=== PATIENT | female | born 1965 | race Caucasian/White ===

== ENCOUNTER 2016-11-08 20:33 | Emergency (ER) | payer MEDICAID ==
[2016-11-08 21:06] LABS: URINE APPEARANCE CLEAR; URINE BILIRUBIN SMALL (NEGATIVE); URINE BLOOD NEGATIVE (NEGATIVE); URINE COLOR YELLOW; URINE GLUCOSE (UA) NEGATIVE (NEGATIVE); URINE KETONE TRACE (NEGATIVE); URINE LEUKOCYTE ESTERASE NEGATIVE (NEGATIVE); URINE NITRITE NEGATIVE (NEGATIVE); URINE PROTEIN TRACE (NEGATIVE); URINE UROBILINOGEN 0.2 E.U./dL (0.20 - 1.00)
[2016-11-08 21:15] LABS: BASO % 0.2 % (0-6); GRAN % 69.9 % (47-80); HEMATOCRIT 42.9 % (35.0-47.0); HEMOGLOBIN 13.8 gm/dl (11.6-16.0); MEAN CELL VOLUME 91.1 fl (81-97); MEAN CORPUSCULAR HEMOGLOBIN 29.3 pg (27-33); MEAN CORPUSCULAR HGB CONC 32.2 g/dl (32-36); MEAN PLATELET VOLUME 9.8 fl (7.4-10.4); MONO % 8.9 % (0-9); PLATELET COUNT 193 K/uL (130-400); RED BLOOD COUNT 4.71 M/uL (3.80-5.40); WHITE BLOOD COUNT W/O DIFF 4.1 K/uL (4.2-12.2)
[2016-11-08 21:25] LABS: ALB/GLOB RATIO 1.4 (1.1-1.8); ALBUMIN 4.7 gm/dL (3.5-5.0); ALKALINE PHOSPHATASE 85 U/L (38-126); ALT/SGPT 48 U/L (9-52); ANION GAP 7.8 (7-16); AST/SGOT 40 U/L (14-36); BILIRUBIN,TOTAL 0.46 mg/dL (0.2-1.3); BLOOD UREA NITROGEN 21 mg/dL (7-17); CARBON DIOXIDE 27.2 mmol/L (22-30); CREATININE 0.9 mg/dL (0.52-1.04); EST GLOMERULAR FILTRATION RATE > 60 ml/min; GLUCOSE,RANDOM 102 mg/dL (70-110); TOTAL PROTEIN 8.1 gm/dL (6.3-8.2)
--- NOTE | 2016-11-08 21:31 | Emergency Department Record ---
History of Present Illness - General Chief Complaint: Abdominal Pain Stated Complaint: BACK AND ABD PAIN Time Seen by Provider: 11/08/16 20:52 Source: Patient Mode of Arrival: Ambulatory Limitations: No limitations - History of Present Illness Initial Comments: pt has a hx of uterine ca a few years ago for which she had treatment.. hyst, chemo. now pt she has pain in her abdomen which is getting worse. she states it gets worse wih a full bladder or bowels. pain is diffuse. no n/v/c/d MD Complaint: Abdominal pain Onset/Timin -: Hour(s) Location: Suprapubic Radiation: Back Quality: Fullness, Sharp Consistency: Constant Improves With: Nothing Worsens With: Bowel movement Associated Symptoms: Denies other symptoms - Related Data Patient : No Home Medications Medication Instructions Recorded Confirmed Last Taken Multivitamin [Multi-Vitamin Daily] 1 each PO DAILY tab 07/19/15 11/08/16 Unknown Previous Rx's Medication Instructions Recorded Amoxicillin/Potassium Clav 1 each PO BID #20 tablet 11/08/16 [Augmentin 875Mg/125Mg] Docusate Sodium [Colace] 100 mg PO QHS #20 cap 11/08/16 Hydrocodone/Acetaminophen [[place] 1 tab PO Q6H PRN #14 tab 11/08/16 5mg/325mg] Allergies Allergy/AdvReac Type Severity Reaction Status Date / Time Tetracyclines Allergy Intermediate SWELLING Verified 11/08/16 20:40 (GENERAL) adhesive Allergy Mild RASH Verified 11/08/16 20:40 Travel Screening - Travel/Exposure Within Last 30 Days Have you traveled within the last 30 days?: No - Travel Symptoms Symptom Screening: None Review of Systems Reviewed: No additional complaints except as noted below Constitutional: Reports: As per HPI. Denies: Chills, Fever, Malaise, Night sweats, Weakness, Weight change Eyes: Reports: As per HPI. Denies: Eye discharge, Eye pain, Photophobia, Vision change ENT: Reports: As per HPI. Denies: Congestion, Dental pain, Ear pain, Epistaxis , Hearing loss, Throat pain Respiratory: Reports: As per HPI. Denies: Cough, Dyspnea, Hemoptysis, Stridor, Wheezes Cardiovascular: Reports: As per HPI. Denies: Arrhythmia, Chest pain, Dyspnea on exertion, Edema, Murmurs, Orthopnea, Palpitations, Paroxysmal nocturnal dyspnea, Rheumatic Fever, Syncope Endocrine: Reports: As per HPI. Denies: Fatigue, Heat or cold intolerance, Polydipsia, Polyuria Gastrointestinal: Reports: As per HPI. Denies: Abdominal pain, Constipation, Diarrhea, Hematemesis, Hematochezia, Melena, Nausea, Vomiting Genitourinary: Reports: As per HPI. Denies: Abnormal menses, Discharge, Dyspareunia, Dysuria, Frequency, Hematuria, Incontinence, Retention, Urgency Musculoskeletal: Reports: As per HPI. Denies: Arthralgia, Back pain, Gout, Joint swelling, Myalgia, Neck pain Skin: Reports: As per HPI. Denies: Bruising, Change in color, Change in hair/ nails, Lesions, Pruritus, Rash Neurological: Reports: As per HPI. Denies: Abnormal gait, Confusion, Headache, Numbness, Paresthesias, Seizure, Tingling, Tremors, Vertigo, Weakness Psychiatric: Reports: As per HPI. Denies: Anxiety, Auditory hallucinations, Depression, Homicidal thoughts, Suicidal thoughts, Visual hallucinations Hematological/Lymphatic: Reports: As per HPI. Denies: Anemia, Blood Clots, Easy bleeding, Easy bruising, Swollen glands Past Medical History - SOCIAL HISTORY Smoking Status: Former smoker - RESPIRATORY Hx Respiratory Disorders: No - CARDIOVASCULAR Hx Cardio Disorders: Yes Hx Palpitations: Yes - NEURO Hx Neuro Disorders: Yes Hx Dizziness: Yes Comment:: VERTIGO - GI Hx GI Disorders: Yes Hx Diverticulitis: Yes - Hx Genitourinary Disorders: No - ENDOCRINE Hx Endocrine Disorders: No - MUSCULOSKELETAL Hx Musculoskeletal Disorders: No - PSYCH Hx Psych Problems: Yes Hx Anxiety: Yes - HEMATOLOGY/ONCOLOGY Hx Hematology/Oncology Disorders: Yes Hx Cancer: Yes (Uterine CA) Hx Chemotherapy: Yes Hx Blood Transfusions: Yes Hx Blood Transfusion Reaction: No Family Medical History Any Significant Family History?: Yes Hx Cancer: Grandparents Hx Diabetes: Father Physical Exam - General General Appearance: Alert, Oriented x3, Cooperative, Mild distress - Head Head exam: Normal inspection - Eye Eye exam: Normal appearance, PERRL, EOMI Pupils: Normal accommodation - ENT ENT exam: Normal exam, Mucous membranes moist, Normal external ear exam, Normal orophraynx Ear exam: Normal external inspection. negative: External canal tenderness Nasal Exam: Normal inspection. negative: Discharge, Sinus tenderness Mouth exam: Normal external inspection, Tongue normal Teeth exam: Normal inspection. negative: Dental caries Throat exam: Normal inspection. negative: Tonsillar erythema, Tonsillar exudate - Neck Neck exam: Normal inspection, Full ROM. negative: Tenderness - Respiratory Respiratory exam: Normal lung sounds bilaterally. negative: Respiratory distress - Cardiovascular Cardiovascular Exam: Regular rate, Normal rhythm, Normal heart sounds - GI/Abdominal GI/Abdominal exam: Soft, Normal bowel sounds, Tenderness - Rectal Rectal exam: Deferred - exam: Normal external exam, Other (prolapse of bladder with bearing down) - Extremities Extremities exam: Normal inspection, Full ROM, Normal capillary refill. negative: Tenderness - Back Back exam: Reports: Normal inspection, Full ROM. Denies: Muscle spasm, Rash noted, Tenderness - Neurological Neurological exam: Alert, CN II-XII intact, Normal gait, Oriented X3, Reflexes normal - Psychiatric Psychiatric exam: Normal affect, Normal mood - Skin Skin exam: Dry, Intact, Normal color, Warm Course Vital Signs 11/08/16 20:41 Temperature 98.1 F Pulse Rate 76 Respiratory 18 Rate Blood Pressure 139/85 Pulse Ox 96 - Reevaluation(s) Reevaluation #1: 11/08/16 22:25 cystic like structure ant to distal inferior vena cava d/w pt and need for f/u and pet scan. she says that this has been being followed. Medical Decision Making - Management Options MDM Management: Additional Work-up Planned (e.g. ADM/Transfer/OP Study) - Data Complexity MDM Data: Labs Ordered and/or Reviewed, X-Ray Ordered and/or Reviewed - Lab Data Result diagrams: 11/08/16 21:09 11/08/16 21:09 Lab Results 11/08/16 11/08/16 Range/Units 21:06 21:09 WBC 4.1 L (4.2-12.2) K/uL RBC 4.71 (3.80-5.40) M/uL Hgb 13.8 (11.6-16.0) gm/dl Hct 42.9 (35.0-47.0) % MCV 91.1 (81-97) fl MCH 29.3 (27-33) pg MCHC 32.2 (32-36) g/dl RDW 14.0 (11.5-14.5) % Plt Count 193 (130-400) K/uL MPV 9.8 (7.4-10.4) fl Gran % 69.9 (47-80) % Lymphocytes % 19.0 (16-45) % Monocytes % 8.9 (0-9) % Eosinophils % 2.0 (0-6) % Basophils % 0.2 (0-6) % Urine Color Yellow Urine Appearance Clear Urine pH 5.5 (5.0-8.0) Ur Specific [place] 1.025 (1.002-1.030) Urine Protein Trace H (NEGATIVE) Urine Glucose (UA) Negative (NEGATIVE) Urine Ketones Trace H (NEGATIVE) Urine Blood Negative (NEGATIVE) Urine Nitrite Negative (NEGATIVE) Urine Bilirubin Small H (NEGATIVE) Urine Urobilinogen 0.2 (0.20 - 1.00) E.U./dL Ur Leukocyte Esterase Negative (NEGATIVE) - Radiology Data Radiology results: Report reviewed, Image reviewed Disposition Disposition: Discharge Clinical Impression: Hypokalemia Diverticulitis Qualifiers: Diverticulitis site: large intestine Diverticulitis bleeding: without bleeding Diverticulitis complication: without perforation or abscess Qualified Code(s): K57.32 - Diverticulitis of large intestine without perforation or abscess without bleeding Cystocele Qualifiers: Cystocele location: midline Qualified Code(s): N81.11 - Cystocele, midline Disposition: Home, Self-Care Condition: (1) Good Instructions: Diverticulitis (ED), Cystocele (ED) Additional Instructions: follow up with diesel locomotive firer/fireman, family doctor and oncologist. have further evaluation of cystic mass including pet scan as deemed appropriate by oncologist. return sooner if worse Prescriptions: Docusate Sodium [Colace] 100 mg PO QHS #20 cap Amoxicillin/Potassium Clav [Augmentin 875Mg/125Mg] 1 each PO BID #20 tablet Hydrocodone/Acetaminophen [[place] 5mg/325mg] 1 tab PO Q6H PRN #14 tab PRN Reason: Pain - General Forms: Patient Portal Access
[2016-11-08] MEDS ORDERED: POTASSIUM CHLORIDE 20 MEQ TABLET PO ONE (21:53)
[2016-11-08] MEDS ORDERED: AMOXICILLIN/POTASSIUM CLAV 875MG/125MG TABLET PO ONE (22:27)
[2016-11-08] MEDS ORDERED: ONDANSETRON HCL IV 4 MG/2 ML VIAL IVP ONE (22:31)
[2016-11-08] MEDS ORDERED: HYDROMORPHONE HCL 1 MG/ML CPJ IVP ONE (22:31)
[2016-11-08] MEDS ORDERED: HYDROCODONE/APAP 5/325MG TABLET PO ONE (22:35)
--- NOTE | 2016-11-09 08:07 | CT SCAN REPORT ---
EXAM: CT SCAN OF THE ABDOMEN AND PELVIS WITHOUT CONTRAST HISTORY: PATIENT HAS FULLNESS OF THE BLADDER AND PRESSURE WITHIN THE BACK WITH PAIN. TECHNIQUE: Serial axial CT scan of the abdomen and pelvis was performed at 3.75 mm intervals from the dome of the diaphragm down to the pubic symphysis without the use of intravenous or oral contrast. Comparison: CT scan of the abdomen and pelvis dated 02/08/16 is provided. FINDINGS: The lung windows of the lung bases demonstrate no CT evidence of a focal infiltrate or pleural effusion. The visualized heart size and contour is within normal limits. The liver demonstrates diffuse fatty infiltration. No suspicious hepatic lesions are identified. The size and contour of the liver is within normal limits. The spleen, pancreas, and bilateral adrenal glands are unremarkable. Cholecystectomy clips are noted within the right upper quadrant of the abdomen. There is no CT evidence of hydronephrosis or hydroureter. No renal or ureteral calculi are noted. The contour and caliber of the abdominal aorta is within normal limits. There is no CT evidence of retroperitoneal, pelvic or inguinal lymphadenopathy. There is a nonspecific 2.6 cm space anterior to the inferior vena cava. This lesion is slightly larger than on the prior examination. Differential considerations include lymphocele versus seroma, however, given the patient's history of endometrial and/or ovarian cancer, neoplastic etiology cannot be entirely excluded. PET scan can be obtained for further evaluation. The bowel gas pattern is nonobstructive. Numerous colonic diverticula are identified. There is questionable pericolonic fat stranding at the junction of the descending and sigmoid colon which may represent subtle diverticulitis. Clinical correlation is recommended. There is no CT evidence of free intraperitoneal fluid or free intraperitoneal air. The urinary bladder is decompressed. The uterus is absent. Bone windows demonstrate no CT evidence of a fracture or dislocation of the visualized osseous structures of the abdomen and pelvis. IMPRESSION: 1. QUESTIONABLE SUBTLE DIVERTICULITIS IDENTIFIED AT THE JUNCTION OF THE DESCENDING AND SIGMOID COLON. CLINICAL CORRELATION IS RECOMMENDED. 2. DIFFUSE HEPATIC STEATOSIS. 3. CYSTIC STRUCTURE IDENTIFIED ANTERIOR TO THE DISTAL INFERIOR VENA CAVA. THIS FINDING APPEARS SLIGHTLY LARGER THAN ON THE PRIOR EXAMINATION. NOTED PREVIOUSLY, DIFFERENTIAL CONSIDERATIONS INCLUDE SEROMA AND/OR LYMPHOCELE. GIVEN THE PATIENT'S HISTORY OF OVARIAN CANCER, HOWEVER, NEOPLASTIC ETIOLOGY CANNOT BE ENTIRELY EXCLUDED. PET SCAN CAN BE OBTAINED FOR FURTHER EVALUATION. JOB NUMBER: [id number] [facility]
== END 2016-11-08 22:51 | disposition home or self-care (01) ==
LOC: ER 20:33
DX: K57.32 Diverticulitis of large intestine without perforation or abscess without bleeding (principal); N81.11 Cystocele, midline; E87.6 Hypokalemia; Z85.42 Personal history of malignant neoplasm of other parts of uterus
CPT/HCPCS: 74176; 80053; 81003; 85025; 99284

== ENCOUNTER 2018-01-08 13:05 | Emergency (ER) | payer SELFPAY ==
[2018-01-08] MEDS ORDERED: 0.9 % SODIUM CHLORIDE 1,000 ML BAG IV ONE (13:57)
[2018-01-08 14:11] LABS: BASO % 0.4 % (0-6); EOS % 0.8 % (0-6); GRAN % 53.7 % (47-80); HEMATOCRIT 40.9 % (35.0-47.0); HEMOGLOBIN 13.1 gm/dl (11.6-16.0); LYMPH % 34.9 % (16-45); MEAN CELL VOLUME 91.5 fl (81-97); MEAN CORPUSCULAR HEMOGLOBIN 29.3 pg (27-33); MEAN PLATELET VOLUME 9.5 fl (7.4-10.4); MONO % 10.2 % (0-9); PLATELET COUNT 165 K/uL (130-400); RED BLOOD COUNT 4.47 M/uL (3.80-5.40); RED CELL DISTRIBUTION WIDTH 13.7 % (11.5-14.5); WHITE BLOOD COUNT W/O DIFF 2.6 K/uL (4.2-12.2)
--- NOTE | 2018-01-08 14:12 | Emergency Department Record ---
History of Present Illness - General Chief Complaint: Abdominal Pain Stated Complaint: ABDOMINAL PAIN Time Seen by Provider: 01/08/18 13:49 Source: Patient Mode of Arrival: Ambulatory Limitations: No limitations - History of Present Illness Initial Comments: pt is having llq ap. she has a hx of diverticulitis but states this feels different.. she has no n/v. she has both c/d. she has a hx of uterine ca. Complaint: Abdominal pain -: Month(s) Radiation: LLQ Migration to: LLQ Severity: Moderate Severity scale (1-10): 7 Quality: Aching Consistency: Constant Improves With: Nothing Worsens With: Nothing Associated Symptoms: Fever - Related Data Patient : No Home Medications Medication Instructions Recorded Confirmed Last Taken L.acidoph,Paracasei, B.lactis 1 each PO DAILY 01/08/18 01/08/18 1 Day Ago [Probiotic] ~01/07/18 Previous Rx's Medication Instructions Recorded Docusate Sodium [Colace] 100 mg PO QHS #20 cap 11/08/16 Hydrocodone/Acetaminophen [[place] 1 each PO Q6HR #14 tablet 01/08/18 5-325 Tablet] Ondansetron [Zofran Odt] 4 mg PO Q8H #14 tab.rapdis 01/08/18 Allergies Allergy/AdvReac Type Severity Reaction Status Date / Time Tetracyclines Allergy Intermediate SWELLING Verified 01/08/18 13:18 (GENERAL) adhesive Allergy Mild RASH Verified 01/08/18 13:18 Travel Screening - Travel/Exposure Within Last 30 Days Have you traveled within the last 30 days?: No - Travel/Exposure Within Last Year Have you traveled outside the [place] in the last year?: No - Additonal Travel Details Have you been exposed to anyone with a communicable illness?: No - Travel Symptoms Symptom Screening: None Review of Systems Reviewed: No additional complaints except as noted below Constitutional: Reports: As per HPI. Denies: Chills, Fever, Malaise, Night sweats, Weakness, Weight change Eyes: Reports: As per HPI. Denies: Eye discharge, Eye pain, Photophobia, Vision change ENT: Reports: As per HPI. Denies: Congestion, Dental pain, Ear pain, Epistaxis , Hearing loss, Throat pain Respiratory: Reports: As per HPI. Denies: Cough, Dyspnea, Hemoptysis, Stridor, Wheezes Cardiovascular: Reports: As per HPI. Denies: Arrhythmia, Chest pain, Dyspnea on exertion, Edema, Murmurs, Orthopnea, Palpitations, Paroxysmal nocturnal dyspnea, Rheumatic Fever, Syncope Endocrine: Reports: As per HPI. Denies: Fatigue, Heat or cold intolerance, Polydipsia, Polyuria Gastrointestinal: Reports: As per HPI, Abdominal pain. Denies: Constipation, Diarrhea, Hematemesis, Hematochezia, Melena, Nausea, Vomiting Genitourinary: Reports: As per HPI. Denies: Abnormal menses, Discharge, Dyspareunia, Dysuria, Frequency, Hematuria, Incontinence, Retention, Urgency Musculoskeletal: Reports: As per HPI. Denies: Arthralgia, Back pain, Gout, Joint swelling, Myalgia, Neck pain Skin: Reports: As per HPI. Denies: Bruising, Change in color, Change in hair/ nails, Lesions, Pruritus, Rash Neurological: Reports: As per HPI. Denies: Abnormal gait, Confusion, Headache, Numbness, Paresthesias, Seizure, Tingling, Tremors, Vertigo, Weakness Psychiatric: Reports: As per HPI. Denies: Anxiety, Auditory hallucinations, Depression, Homicidal thoughts, Suicidal thoughts, Visual hallucinations Hematological/Lymphatic: Reports: As per HPI. Denies: Anemia, Blood Clots, Easy bleeding, Easy bruising, Swollen glands Past Medical History - SOCIAL HISTORY Smoking Status: Former smoker Alcohol Use: None Drug Use: None - RESPIRATORY Hx Respiratory Disorders: No - CARDIOVASCULAR Hx Cardio Disorders: Yes Hx Palpitations: Yes - NEURO Hx Neuro Disorders: Yes Hx Dizziness: Yes Comment:: VERTIGO - GI Hx GI Disorders: Yes Hx Diverticulitis: Yes - Hx Genitourinary Disorders: No - ENDOCRINE Hx Endocrine Disorders: No - MUSCULOSKELETAL Hx Musculoskeletal Disorders: No - PSYCH Hx Psych Problems: Yes Hx Anxiety: Yes - HEMATOLOGY/ONCOLOGY Hx Hematology/Oncology Disorders: Yes Hx Cancer: Yes (Uterine CA) Hx Chemotherapy: Yes (07/2014) Hx Blood Transfusions: Yes Hx Blood Transfusion Reaction: No Family Medical History Any Significant Family History?: Yes Hx Cancer: Grandparents Hx Diabetes: Father Physical Exam - General General Appearance: Alert, Oriented x3, Cooperative, Mild distress - Head Head exam: Normal inspection - Eye Eye exam: Normal appearance, PERRL, EOMI Pupils: Normal accommodation - ENT ENT exam: Normal exam, Mucous membranes moist, Normal external ear exam, Normal orophraynx, TM's normal bilaterally Ear exam: Normal external inspection. negative: External canal tenderness Nasal Exam: Normal inspection. negative: Discharge, Sinus tenderness Mouth exam: Normal external inspection, Tongue normal Teeth exam: Normal inspection. negative: Dental caries Throat exam: Normal inspection. negative: Tonsillar erythema, Tonsillar exudate - Neck Neck exam: Normal inspection, Full ROM. negative: Tenderness - Respiratory Respiratory exam: Normal lung sounds bilaterally. negative: Respiratory distress - Cardiovascular Cardiovascular Exam: Regular rate, Normal rhythm, Normal heart sounds - GI/Abdominal GI/Abdominal exam: Soft, Normal bowel sounds, Tenderness (l abd) - Rectal Rectal exam: Deferred - exam: Deferred - Extremities Extremities exam: Normal inspection, Full ROM, Normal capillary refill. negative: Tenderness - Back Back exam: Reports: Normal inspection, Full ROM. Denies: Muscle spasm, Rash noted, Tenderness - Neurological Neurological exam: Alert, CN II-XII intact, Normal gait, Oriented X3 - Psychiatric Psychiatric exam: Normal affect, Normal mood - Skin Skin exam: Dry, Intact, Normal color, Warm Course Vital Signs 01/08/18 13:19 Temperature 98.0 F Pulse Rate [ 79 Pulse Ox Probe] Respiratory 18 Rate Blood Pressure 150/88 [Left Arm] Pulse Ox 98 dr - Reevaluation(s) Reevaluation #1: 01/08/18 17:22 d/w dr ayala Reevaluation #2: 01/08/18 17:44 d/w dr gilliam Medical Decision Making - Lab Data Result diagrams: 01/08/18 14:02 01/08/18 14:02 Disposition Disposition: Discharge Clinical Impression: Abdominal wall mass Disposition: Home, Self-Care Condition: (1) Good Instructions: Abdominal Pain (ED), Soft Tissue Mass (ED) Additional Instructions: follow up with dr ayala this week for further evaluation of abdominal. return sooner if worse. Prescriptions: Hydrocodone/Acetaminophen [[place] 5-325 Tablet] 1 each PO Q6HR #14 tablet Ondansetron [Zofran Odt] 4 mg PO Q8H #14 tab.rapdis Referrals: Darrion Gilliam [DOCTOR OF OSTEOPATH] - [facility] Specialty Clinics [Provider Group] Forms: Patient Portal Access Quality - Quality Measures Quality Measures: N/A - Blood Pressure Screening Does Patient Have Any of the Following: No Blood Pressure Classification: Hypertensive Reading Systolic Measurement: 140 Diastolic Measurement: 67 Screening for High Blood Pressure: < First Hypertensive BP, F/U Documented > [ [id number]] First Hypertensive Follow-up Interventions: Follow-up with rescreen GT 1 day and LT 4 weeks.
[2018-01-08 14:15] LABS: URINE APPEARANCE CLEAR; URINE BILIRUBIN NEGATIVE (NEGATIVE); URINE BLOOD NEGATIVE (NEGATIVE); URINE COLOR YELLOW; URINE GLUCOSE (UA) NEGATIVE (NEGATIVE); URINE KETONE NEGATIVE (NEGATIVE); URINE LEUKOCYTE ESTERASE NEGATIVE (NEGATIVE); URINE NITRITE NEGATIVE (NEGATIVE); URINE PROTEIN NEGATIVE (NEGATIVE); URINE UROBILINOGEN 0.2 E.U./dL (0.20 - 1.00)
[2018-01-08 14:29] LABS: BLOOD UREA NITROGEN 11 mg/dL (6-20); CREATININE 0.6 mg/dL (0.5-0.9); EST GLOMERULAR FILTRATION RATE > 60 mL/min
[2018-01-08 14:30] LABS: TOTAL PROTEIN 7.2 g/dL (6.6-8.7)
[2018-01-08 14:32] LABS: GLUCOSE,RANDOM 102 mg/dL (74-109)
[2018-01-08 14:35] LABS: ALB/GLOB RATIO 1.4 (1.1-1.8); ALBUMIN 4.2 g/dL (4.0-5.0); ALKALINE PHOSPHATASE 57 U/L (35-104); ALT/SGPT 26 U/L (<33); AST/SGOT 23 U/L (10.0-35.0); LIPASE 36 U/L (13-60)
[2018-01-08] MEDS ORDERED: ONDANSETRON HCL IV 4 MG/2 ML VIAL IVP ONE (17:20)
[2018-01-08] MEDS ORDERED: HYDROMORPHONE HCL 2 MG/ML VIAL IVP ONE (17:20)
[2018-01-08] MEDS ORDERED: HEPARIN SODIUM FLUSH 100 UNITS/ML SYR 5ML IVP ONE (18:17)
--- NOTE | 2018-01-09 10:23 | CT SCAN REPORT ---
EXAM: CT OF THE ABDOMEN AND PELVIS WITH CONTRAST HISTORY: LEFT LOWER QUADRANT ABDOMINAL PAIN INTERMITTENTLY FOR TWO MONTHS WITH WORSENING THIS WEEK. STAGE 3 UTERINE CARCINOMA DIAGNOSED IN 2013. LAST CHEMOTHERAPY IN 2016. TECHNIQUE: Following oral and intravenous contrast administration, helical CT examination of the abdomen and pelvis was performed including delayed images through the kidneys with 100 ml of Omnipaque 300 utilized. Comparison: CT of the abdomen and pelvis without contrast dated 11/08/16. CT of the chest, abdomen and pelvis with contrast dated 02/08/16. FINDINGS: Minor linear scarring versus atelectasis within the left lung base. This is more pronounced than on the prior examination. The lung bases are otherwise clear. No pleural or pericardial effusion. The heart is not enlarged. There is mild decreased density of the liver relative to the spleen consistent with steatosis. No new focal hepatic lesion. The gallbladder is surgically absent. There is mild prominence of the central biliary tree with the common hepatic duct measuring 11 mm. This is unchanged and likely relates to a physiologic response to surgical absence of the gallbladder. The spleen, pancreas, and adrenal glands remain normal in appearance. A too small to characterize hypodense lesion is demonstrated within the upper pole of the left kidney. This was not visualized with confidence on prior examinations. This measures 5 mm. It is nonspecific, but likely a cyst. No new intraabdominal nor retroperitoneal lymphadenopathy. There is a thin walled cystic structure again noted contiguous with the anterior margin of the IVC bifurcation. This measures approximately 2.4 x 2.5 cm and may cause mild flattening of the anterior margin of the IVC bifurcation. This has not changed in size since 11/08/16, however, suggesting a benign process such as seroma or lymphocele. The portal vein and splenic vein are patent. The central mesenteric vasculature appears patent. The abdominal aorta and iliac arteries are without aneurysmal dilatation. No new pelvic mass, lymphadenopathy, nor free pelvic fluid is demonstrate. The uterus is surgically absent. No intrinsic urinary bladder abnormality is noted. There is diverticulosis of the left colon redemonstrated, this is most pronounced in the sigmoid region. No definite diverticulitis. The appendix is visualized and normal in appearance. No gross mild dilatation nor bowel wall thickening. A small fat filled umbilical hernia persists. There is a solid mass like area in the abdominal wall at the anterolateral mid level just above the level of the umbilicus. This measures 1.6 x 1.9 x 2.7 cm. This area has enlarged in the interval. Neoplasm cannot be excluded. Hematoma is unlikely. No new lytic or blastic bone lesion. There are degenerative changes scattered throughout the visualized spine most pronounced at the lumbosacral junction where they are mild to moderate in degree. IMPRESSION: 1. SURGICAL ABSENCE OF THE UTERUS, OVARIES AND GALLBLADDER. 2. DIVERTICULOSIS OF THE LEFT COLON WITHOUT CONVINCING EVIDENCE OF ACUTE DIVERTICULITIS. 3. SOLID APPEARING MASS IN THE DEEP LAYERS OF THE LEFT ANTERIOR ABDOMINAL WALL AT THE MID LEVEL MEASURING 1.6 X 4.9 X 2.7 CM. THIS IS CENTERED AT THE LEVEL OF THE TRANSVERSUS ABDOMINIS MUSCLE. MALIGNANCY IS TO BE EXCLUDED. [facility]: [id number] [facility]
== END 2018-01-08 18:20 | disposition home or self-care (01) ==
LOC: ER 13:05
DX: R19.09 Other intra-abdominal and pelvic swelling, mass and lump (principal); R10.32 Left lower quadrant pain; F17.210 Nicotine dependence, cigarettes, uncomplicated; Z85.42 Personal history of malignant neoplasm of other parts of uterus
CPT/HCPCS: 74177; 80053; 81003; 83605; 83690; 85025; 96374; 96375; 99284; J2405; J7030

== ENCOUNTER 2018-06-01 05:09 | Emergency (ER) | payer SELFPAY ==
--- NOTE | 2018-06-01 05:36 | Emergency Department Record ---
History of Present Illness - General Chief complaint: Pain Stated complaint: PAIN Time Seen by Provider: 06/01/18 05:18 Source: Patient Mode of Arrival: Ambulatory Limitations: No limitations - History of Present Illness Initial comments: 53 yo female presents to ED for evaluation of lower abdominal pain symptoms x 1 month. Patient reports that her pain is diffuse, reports that she is scheduled for surgery 06/10 for an abdominal tumor to be removed by Dr. Salazar. Patient also reports that she was recently switched from [place] to Morphine IR that she states "is not working" 05/02. Patient reports that she has not taken her Morphine IR since yesterday as her medication is not working. Patient reports decreased appetite as well, denies change in stools. Patient denies fevers, chills, vomiting, or recent illness. Patient has not contacted her pain specialist or her oncologic surgeon regarding her symptoms. MD Complaint: Abdominal Pain Onset/Timin -: Month(s) Location: Other History of Same: Yes Severity scale (1-10): 10 Consistency: Constant Improves with: Nothing Worsens with: Nothing Associated Symptoms: Denies other symptoms - Related Data Home Medications Medication Instructions Recorded Confirmed Last Taken Morphine Sulfate 15 mg PO Q4HR PRN 06/01/18 06/01/18 05/31/18 30 mg Previous Rx's Medication Instructions Recorded Docusate Sodium [Colace] 100 mg PO QHS #20 cap 11/08/16 Ondansetron [Zofran Odt] 4 mg PO Q8H #14 tab.rapdis 01/08/18 Allergies Allergy/AdvReac Type Severity Reaction Status Date / Time Tetracyclines Allergy Intermediate SWELLING Verified 01/08/18 13:18 (GENERAL) adhesive Allergy Mild RASH Verified 01/08/18 13:18 Travel Screening - Travel/Exposure Within Last 30 Days Have you traveled within the last 30 days?: No - Travel/Exposure Within Last Year Have you traveled outside the [place] in the last year?: No - Additonal Travel Details Have you been exposed to anyone with a communicable illness?: No - Travel Symptoms Symptom Screening: None Review of Systems Constitutional: Denies: Chills, Fever, Malaise, Night sweats Eyes: Denies: Eye discharge, Eye pain ENT: Denies: Congestion, Ear pain, Epistaxis Respiratory: Denies: Cough, Dyspnea Cardiovascular: Denies: Chest pain, Dyspnea on exertion Endocrine: Denies: Fatigue, Heat or cold intolerance Gastrointestinal: Reports: Abdominal pain. Denies: Nausea, Vomiting Genitourinary: Denies: Incontinence, Retention Musculoskeletal: Denies: Arthralgia, Back pain Skin: Denies: Bruising, Change in color Neurological: Denies: Abnormal gait, Confusion, Headache, Seizure Psychiatric: Denies: Anxiety Hematological/Lymphatic: Denies: Anemia, Blood Clots Past Medical History - SOCIAL HISTORY Smoking Status: Former smoker Alcohol Use: None Drug Use: None - RESPIRATORY Hx Respiratory Disorders: No - CARDIOVASCULAR Hx Cardio Disorders: Yes Hx Palpitations: Yes - NEURO Hx Neuro Disorders: Yes Hx Dizziness: Yes Comment:: VERTIGO - GI Hx GI Disorders: Yes Hx Diverticulitis: Yes - Hx Genitourinary Disorders: Yes - ENDOCRINE Hx Endocrine Disorders: No - MUSCULOSKELETAL Hx Musculoskeletal Disorders: No - PSYCH Hx Psych Problems: Yes Hx Anxiety: Yes - HEMATOLOGY/ONCOLOGY Hx Hematology/Oncology Disorders: Yes Hx Cancer: Yes (Uterine CA) Hx Chemotherapy: Yes (07/2014) Hx Radiation Therapy: Yes (2014) Hx Blood Transfusions: Yes Hx Blood Transfusion Reaction: No Family Medical History Any Significant Family History?: No Hx Cancer: Grandparents Hx Diabetes: Father Physical Exam - General General Appearance: Alert, Oriented x3, Cooperative, Mild distress, Other ( tearful on examination, appears anxious) Limitations: No limitations - Head Head exam: Atraumatic, Normocephalic, Normal inspection Head exam detail: negative: Abrasion, Contusion, Garcia's sign, General tenderness, Hematoma, Laceration - Eye Eye exam: Normal appearance. negative: Conjunctival injection, Periorbital swelling, Periorbital tenderness, Scleral icterus - ENT Ear exam: negative: Auricular hematoma, Auricular trauma Nasal Exam: negative: Active bleeding, Discharge, Dried blood, Foreign body Mouth exam: negative: Drooling, Laceration, Muffled voice, Tongue elevation - Neck Neck exam: Normal inspection. negative: Meningismus, Tenderness - Respiratory Respiratory exam: Normal lung sounds bilaterally. negative: Rales, Respiratory distress, Rhonchi, Stridor - Cardiovascular Cardiovascular Exam: Regular rate, Normal rhythm, Normal heart sounds - GI/Abdominal GI/Abdominal exam: Soft, Tenderness (Diffuse TTP on examination, no rebound, no guarding). negative: Rebound, Rigid - Rectal Rectal exam: Deferred - exam: Deferred - Extremities Extremities exam: Normal inspection. negative: Calf tenderness, Pedal edema, Tenderness - Back Back exam: Denies: CVA tenderness (R), CVA tenderness (L) - Neurological Neurological exam: Alert, Normal gait, Oriented X3 - Psychiatric Psychiatric exam: Anxious - Skin Skin exam: Normal color. negative: Abrasion Type of lesion: negative: abrasion Course Vital Signs 06/01/18 05:19 Temperature 98.4 F Pulse Rate 76 Respiratory 20 Rate Blood Pressure 148/85 Pulse Ox 98 - Reevaluation(s) Reevaluation #1: 06/01/18 05:38 Following examination with nursing staff present, I began to ask "based on the duration of your abdominal pain symptoms, we can perform an extensive evaluation.." Patient abruptly cut me off stating "Nevermind, I want to leave" . Nurse present and I left the room for the patient to change her clothing, patient then left the department without further evaluation. Disposition Disposition: Other (eloped) Clinical Impression: Abdominal pain Qualifiers: Abdominal location: generalized Qualified Code(s): R10.84 - Generalized abdominal pain Disposition: Acute Care Hospital Transfer Condition: (2) Stable Instructions: Abdominal Pain (ED) Additional Instructions: patient left the ED prior to instructions. Forms: Patient Portal Access Time of Disposition: 05:41 Quality - Quality Measures Quality Measures: N/A - Blood Pressure Screening Does Patient Have Any of the Following: No Blood Pressure Classification: Pre-Hypertensive BP Reading Systolic Measurement: 148 Diastolic Measurement: 85 Screening for High Blood Pressure: < Pre-Hypertensive BP, F/U Documented > [ [id number]] Pre-Hypertensive Follow-up Interventions: Referral to alternative/primary care provider.
== END 2018-06-01 05:45 | disposition short-term general hospital (02) ==
LOC: ER 05:09
DX: R10.84 Generalized abdominal pain (principal); D49.89 Neoplasm of unspecified behavior of other specified sites; Z87.891 Personal history of nicotine dependence; Z85.42 Personal history of malignant neoplasm of other parts of uterus; Z53.20 Procedure and treatment not carried out because of patient's decision for unspecified reasons
CPT/HCPCS: 99281

== ENCOUNTER 2019-01-09 10:12 | Day surgery (SDC) | payer MEDICAID ==
[2019-01-09] MEDS ORDERED: FENTANYL PF 100MCG/2ML VIAL IV ONE (10:13)
[2019-01-09] MEDS ORDERED: LIDOCAINE 2% MDV (20MG/ML) 20ML VIAL IV ONE (10:13)
[2019-01-09] MEDS ORDERED: PROPOFOL 10 MG/ML VIAL IV ONE (10:13)
--- NOTE | 2019-01-10 07:20 | Operative Note ---
OPERATION: ESOPHAGOGASTRODUODENOSCOPY with biopsy. PREOPERATIVE DIAGNOSIS: Nausea and rare vomiting. POSTOPERATIVE DIAGNOSES: 1. Nonerosive gastritis. 2. Irregular Z line. 3. Sliding hiatal hernia. PROCEDURE: After informed consent was obtained from the patient, she was placed in the left lateral decubitus position in the endoscopy suite, sedated and monitored by the department of anesthesia. Once sedated, a well-lubricated [id number] gastroscope was placed in the posterior oropharynx under direct visualization and passed to the proximal esophagus. The endoscope was advanced through the proximal, mid, and distal esophagus. The GE junction was slightly irregular but no ulcers, erosions, strictures, varices, or mass lesions were seen. No nodularity was identified. There was a small sliding hiatal hernia. The subdiaphragmatic stomach demonstrated mild linear erythematous changes in the antrum. No hollie ulcers, mass lesions, tumors were seen. The pylorus, duodenal bulb, and sweep were unremarkable. J-turn views of the proximal stomach were unrevealing. The endoscope was straightened. Random gastric biopsies were obtained. GE junction biopsies were obtained. The endoscope was removed from the patient with no new findings noted. RECOMMENDATIONS: At this point, I suspect that she may suffer from some nausea related to her use of morphine. A trial of antiemetics would be reasonable. At some point, she should have a colonoscopy but this may be delayed until her gynecologic issues are resolved. As always, thank you for allowing me to participate in the healthcare of your patients. CC: Dr. Bernardo Ambrose, JEY MADRID
== END 2019-01-09 11:50 | disposition home or self-care (01) ==
LOC: HOP 10:12
PROVIDERS: ATTEND Internal Medicine Gastroenterology
DX: R11.0 Nausea (principal); R11.10 Vomiting, unspecified; K29.70 Gastritis, unspecified, without bleeding; K44.9 Diaphragmatic hernia without obstruction or gangrene; K31.89 Other diseases of stomach and duodenum; K20.9 Esophagitis, unspecified; C54.1 Malignant neoplasm of endometrium
CPT/HCPCS: 43239; 00731; 85025; 80053; J3010